=== PATIENT | male | born 1955 | race African-American/Black ===

== ENCOUNTER 2024-10-24 07:43 | Emergency (ER) | payer OTHER, MEDICAID ==
[~2024-10-24] VITALS: Ht 177.8 cm; Wt 105.6 kg
[2024-10-24 08:24] VITALS: BP 186/85; PULSE 75; RESP 18; TEMP 98.2; O2SAT 94
--- NOTE | 2024-10-24 08:35 | ED.PDOC ---
General HPI Comments A 68 YEAR OLD MALE PRESENTS TO THE ED WITH CHIEF COMPLAINT OF TESTICULAR PAIN. PATIENT REPORTS THAT HE HAS BEEN EXPERIENCING RIGHT SIDED TESTICULAR PAIN AND SWELLING FOR THE PAST MONTH, HOWEVER, HE HAD SIMILAR SYMPTOMS YEARS AGO AFTER BACK SURGERY IN 2016. PATIENT RELAYS THAT HE HAD NUMBNESS TO HIS LOWER BODY DUE TO HIS BACK SURGERY, HOWEVER, HE HAS NOW STARTED TO EXPERIENCE FEELINGS OF PAIN FOR A MONTH. PATIENT DENIES ANY DYSURIA, HEMATURIA, FEVER, CHILLS, OR ABDOMINAL PAIN. NO OTHER SYMPTOMS REPORTED AT THIS TIME OF CARE. Chief Complaint: Testicle Pain Time Seen by MD: 08:31 Primary Care Provider: UNKNOWN Reviewed notes: Nurses Notes, Medications, Allergies Allergies: Coded Allergies: NO KNOWN ALLERGIES (Unverified , 06/14/16) Home Meds Active Scripts Indomethacin (Indomethacin) 50 Mg Cap, 1 CAP PO TID, #30 CAP Prov:ANSHUL SAAVEDRA 10/24/24 Ciprofloxacin Hcl (Cipro) 500 Mg Tab, 1 TAB PO BID, #20 TAB Prov:ANSHUL SAAVEDRA 10/24/24 Information Source: Patient Mode of Arrival: Ambulatory Severity: Moderate Inability to void: None Timing: Months Duration: Since onset, Intermittent Prehospital treatment: None Onset: Spontaneous Symptoms: None History of: None Location male: R Scrotum Penile discharge: None Modifying factors: None associated signs and symptoms: None Past Medical History Past Medical History (Other): CHRONIC LOW BACK PAIN Surgical History (Other): BACK SURGERY Family History Family History: Unknown Social History Smoker: Non-Smoker Alcohol: Denies ETOH Use Drugs: Denies Drug Use Lives In: Home Constitutional: reports: others (ANXIOUS ); denies: chills, diaphoresis, fatigue, fever, malaise, sweats, weakness EENTM: denies: blurred vision, double vision, ear bleeding, ear discharge, ear drainage, ear pain, ear ringing, eye pain, eye redness, hearing loss, mouth pain, mouth swelling, nasal discharge, nose bleeding, nose congestion, nose pain, photophobia, tearing, throat pain, throat swelling, voice changes, others Respiratory: denies: cough, hemoptysis, orthopnea, SOB at rest, shortness of breath, SOB with excertion, stridor, wheezing, others Cardiovascular: denies: chest pain, dizzy spells, diaphoresis, Dyspnea on exertion, edema, irregular heart beat, left arm pain, lightheadedness, palpitations, PND, syncope, others Gastrointestinal: denies: abdomen distended, abdominal pain, blood streaked bowels, constipated, diarrhea, dysphagia, difficulty swallowing, hematemesis, melena, nausea, poor appetite, poor fluid intake, rectal bleeding, rectal pain, vomiting, others Genitourinary: reports: testicle pain, testicle swelling; denies: burning, dysuria, flank pain, frequency, hematuria, incontinence, penile discharge, penile sore, pain, urgency, others Neurological: denies: dizziness, fainting, headache, left sided numbness, left sided weakness, numbness, paresthesia, pre-existing deficit, right sided numbness, right sided weakness, seizure, speech problems, tingling, tremors, weakness, others Musculoskeletal: denies: back pain, gout, joint pain, joint swelling, muscle pain, muscle stiffness, neck pain, others Integumetry: denies: bruises, change in color, change in hair/nails, dryness, laceration, lesions, lumps, rash, wounds, others Allergic/Immunocompromised: denies: Difficulty Healing, Frequent Infections, Hives, Itching, others Hematologic/Lymphatic: denies: anemia, blood clots, easy bleeding, easy bruising, swollen glands, others Endocrine: denies: excessive hunger, excessive sweating, excessive thirst, excessive urination, flushing, intolerance to cold, intolerance to heat, unexplained weight gain, unexplained weight loss, others Psychiatric: denies: anxiety, bipolar disorder, depression, hopeless, panic disorder, schizophrenia, sleepless, suicidal, others All Other Systems: Reviewed and Negative Physical Exam General Appearance: No Apparent Distress, Normal HEENT: Normal ENT Inspection, PERRL/EOMI, Pharynx Normal Neck: Full Range of Motion, Non-Tender, Normal, Normal Inspection Respiratory: Chest Non-Tender, Lungs Clear, No Accessory Muscle Use, No Respiratory Distress, Normal Breath Sounds Cardiovascular: No Edema, No JVD, No Murmur, No Gallop, Normal Peripheral Pulses, Regular Rate/Rhythm Breast Exam: Deferred Gastrointestinal: No Organomegaly, Non Tender, No Pulsatile Mass, Normal Bowel Sounds, Soft Genitalia: Scrotum (TENDERNESS ON RIGHT SCROTUM WITH MILD SWELLING. ), Testicle (TENDERNESS AND MILD SWELLING ON RIGHT TESTICLE, BILATERAL TESTICLE DESCENDING, NO TESTICLE TORSION. TENDERNESS RIGHT EPIDIDYMAL, EPIDIDYMITIS?? ) Pelvic: Deferred Rectal: Deferred Extremities: No calf tenderness, Normal capillary refill, Normal inspection, Normal range of motion, Non-tender, No pedal edema Musculoskeletal : Apperance: Normal Neurologic: Alert, bucket chucker II-XII nml as Tested, No Motor Deficits, Normal Affect, Normal Mood, No Sensory Deficits Cerebellar Function: Normal Reflexes: Normal Skin: Dry, Normal Color, Warm Peripheral Pulses: 2+ carotid (R), 2+ carotid (L) Lymphatic: No Adenopathy Was a procedure done? Was a procedure done?: No Differential Diagnosis Kidney stone (Female): N/A Kidney stone (Male): N/A Penile/Scrotal: Hydrocele X-Ray, Labs, Meds, VS Vital Signs Date Time Temp Pulse Resp B/P (MAP) Pulse Ox O2 Delivery O2 Flow Rate FiO2 10/24/24 08:24 98.2 75 18 186/85 (118) 94 98.2 10/24/24 08:24 75 18 94 Room Air 10/24/24 07:53 98.2 75 18 186/85 (118) 94 PATIENT: DONNIE VAZQUEZ DACCT: [id number]: [id number] : 1955 LOC: ER ROOM / BED: / AGE / SEX: 68 / M ADM STATUS: [facility] ER SERVICE [id number] ORDERING PHYSICIAN: ANSHUL SAAVEDRA PROCEDURE(s): TESUS - TESTICULAR ULTRASOUND REASON: RIGHT TESTICLE PAIN X ONE MONTH ORDER NUMBER(s): [id number], ACCESSION NUMBER(s): [id number] CLINICAL INFORMATION: 68 years old, Male; right testicular pain. TECHNIQUE: Grayscale sonographic imaging of the testicles and scrotal contents was performed , assisted by color doppler technique. Duplex doppler ultrasound of both testicles was performed. COMPARISON: None FINDINGS: The right testicle measures 4.7 x 3.0 x 4.7 cm, within normal limits. Unremarkable echogenicity of the right testicle. Mildly increased flow in the right testicle. Unremarkable epididymis. No hydrocele or varicocele. The left testicle measures 4.4 x 2.3 x 4.2 cm, within normal limits. Unremarkable echogenicity of the left testicle. Arterial and venous blood flow demonstrated. Left epididymis is not able to be visualized. No hydrocele or varicocele. IMPRESSION: 1. No evidence of testicular torsion. 2. Mildly increased flow in the right testicle is nonspecific, may be due to inflammation, including degree of orchitis in the appropriate clinical setting. Normal flow in the right epididymis. 3. Left epididymis was not able to be visualized. ATED BY: JACE MATTHEWS DO DICTATED DATE/TIME: 10/24/24955 SIGNED BY: JACE MATTHEWS DO SIGNED DATE/TIME: 10/24/24955 CC: X-Ray, Labs, Meds, VS Comment EXTERNAL MEDICAL RECORDS REVIEWED: 06/14/16 FOR CERVICAL RADICULOPATHY INDEPENDENT HISTORIANS: [NONE] SOCIAL DETERMINANTS OF HEALTH: [NONE] LABS ORDERED: NONE REVIEWED AND INTERPRETED RESULTS: TESTICULAR US: PENDING OFFICIAL READING. PER BRAKE MECHANIC, POSSIBLE MILD HYDROCELE AND MILD EPIDIDYMITIS. IMAGING ORDERED: TESTICULAR US TREATMENTS ORDERED: NONE PROCEDURES PERFORMED: NONE CRITICAL CARE TIME: NONE I HAVE DISCUSSED THE PATIENT WITH THE ATTENDING PHYSICIAN DR. VEGA AND HE AGREES WITH THE PATIENT'S PLAN OF CARE AND DISPOSITION. BASED ON HISTORY OF PRESENT ILLNESS, AND PHYSICAL EXAM, PATIENT WILL BE DISCHARGED HOME. DISCUSSED PLAN FOR DISCHARGE HOME WITH RX. MEDICATION WARNINGS GIVEN. SHARED DECISION MAKING: DISCUSSED WITH PATIENT THAT THEIR WORKUP WAS NORMAL. PATIENT INSTRUCTED TO FOLLOW UP WITH PRIMARY CARE PROVIDER IN 1-2 DAYS FOR RE- EVALUATION OF SYMPTOMS. PATIENT VERBALIZES UNDERSTANDING TO RETURN TO ED FOR NEW OR WORSENING SYMPTOMS OR IF FOLLOW UP WITH PCP CANNOT BE OBTAINED. PATIENT FEELS COMFORTABLE GOING HOME AT THIS TIME. ALL QUESTIONS ADDRESSED AT TIME OF DISCHARGE. Time of 1ST Reevaluation: 09:50 Reevaluation 1ST: Unchanged Patient Education/Counseling: Diagnosis, Treatment, Need For Follow Up Family Education/Counseling: Diagnosis, Treatment, No Family Present Medical Screening: No EMC Exist At This Time Departure 1 Departure Time of Disposition: 09:50 Impression: Primary Impression: Orchitis and epididymitis Disposition: 01 HOME / SELF CARE / HOMELESS Condition: Stable Additional Instructions: FOLLOW-UP WITH PCP IN 1 TO 2 DAYS. TAKE MEDICATIONS PRESCRIBED. RETURN TO ED FOR ANY NEW OR WORSENING SYMPTOMS. e-Prescriptions Indomethacin (Indomethacin) 50 Mg Cap 1 CAP PO TID, #30 CAP Prov: ANSHUL SAAVEDRA 10/24/24 Ciprofloxacin Hcl (Cipro) 500 Mg Tab 1 TAB PO BID, #20 TAB Prov: ANSHUL SAAVEDRA 10/24/24 Discharged With: Self Critical Care Note Critical Care Time?: No Stability Stability form required: No Heart Score Heart Score: Heart Score Response (Comments) Value History N/A 0 EKG N/A 0 Age N/A 0 Risk Factors N/A 0 Troponin N/A 0 Total 0 I personally scribed for ANSHUL SAAVEDRA ([email or web address]) on 10/24/24 at 08:35. Electronically submitted by Sid Khalil ([email or web address]). I personally scribed for ANSHUL SAAVEDRA ([email or web address]) on 10/24/24 at 09:47. Electronically submitted by Sid Khalil ([email or web address]). ANSHUL SAAVEDRA Oct 24, 2024 08:35
[2024-10-24] MEDS ORDERED: INDO50CA82 PO (09:49)
[2024-10-24] MEDS ORDERED: CIPR-173 PO (09:49)
--- NOTE | 2024-10-24 09:58 | DVH ---
CLINICAL INFORMATION: 68 years old, Male; right testicular pain. TECHNIQUE: Grayscale sonographic imaging of the testicles and scrotal contents was performed , faizan josesito by color doppler technique. Duplex doppler ultrasound of both testicles was performed. COMPARISON: None FINDINGS: The right testicle measures 4.7 x 3.0 x 4.7 cm, within normal limits. Unremarkable echogenicity of th e right testicle. Mildly increased flow in the right testicle. Unremarkable epididymis. No hydrocel e or varicocele. The left testicle measures 4.4 x 2.3 x 4.2 cm, within normal limits. Unremarkable echogenicity of the left testicle. Arterial and venous blood flow demonstrated. Left epididymis is not able to be visu alized. No hydrocele or varicocele. IMPRESSION: 1. No evidence of testicular torsion. 2. Mildly increased flow in the right testicle is nonspecific, may be due to inflammation, including degree of orchitis in the appropriate clinical setting. Normal flow in the right epididymis. 3. Left epididymis was not able to be visualized.
== END 2024-10-24 09:55 | disposition home or self-care (01) ==
LOC: ER 07:43
DX: N45.3 Epididymo-orchitis (principal); G89.29 Other chronic pain; M54.50 Low back pain, unspecified; Z79.2 Long term (current) use of antibiotics; Z79.899 Other long term (current) drug therapy
CPT/HCPCS: 76870

== ENCOUNTER 2024-11-21 08:54 | Emergency (ER) | payer OTHER, MEDICAID ==
[~2024-11-21] VITALS: Ht 177.8 cm; Wt 103.6 kg
[~2024-11-21 08:54] MED LIST: CIPR-173 PO; INDO50CA82 PO
[2024-11-21 09:15] VITALS: BP 188/94; PULSE 71; RESP 18; TEMP 98.6; O2SAT 97
--- NOTE | 2024-11-21 09:32 | ED.PDOC ---
General HPI Comments A 69 YEAR OLD MALE PRESENTS TO THE ED WITH CHIEF COMPLAINT OF RIGHT TESTICULAR PAIN. PATIENT REPORTS THAT HE HAS BEEN EXPERIENCING RIGHT TESTICULAR PAIN AND SWELLING FOR THE PAST YEAR, WORSE TODAY WITH AN 8/10 PAIN. PATIENT RELAYS THAT HE NEEDS TO STRAIGHT CATH HIMSELF FOR THE PAST 8 YEARS DUE TO AN INABILITY TO VOID AFTER A BACK SURGERY. PATIENT STATES HE HAS FREQUENT UTIS. PATIENT NOTES HE WAS SEEN ON 10/24 IN [facility] WHERE AN ULTRASOUND REPORTED EPIDIDYMITIS AND EVEN AFTER TAKING THE PRESCRIBED ANTIBIOTICS, NO RELIEF HAS BEEN NOTED SINCE THEN. PATIENT DENIES ANY DYSURIA, HEMATURIA, ABDOMINAL PAIN, FEVER, OR CHILLS. NO OTHER SYMPTOMS REPORTED AT THIS TIME OF CARE. Chief Complaint: Testicle Pain Time Seen by MD: 09:29 Primary Care Provider: UNKNOWN Reviewed notes: Nurses Notes, Medications, Allergies Allergies: Coded Allergies: NO KNOWN ALLERGIES (Unverified , 06/14/16) Home Meds Active Scripts Naproxen (Naproxen) 500 Mg Tab, 500 MG PO BID, #30 TAB Prov:ANSHUL SAAVEDRA 11/21/24 Indomethacin (Indomethacin) 50 Mg Cap, 1 CAP PO TID, #30 CAP Prov:ANSHUL SAAVEDRA 10/24/24 Ciprofloxacin Hcl (Cipro) 500 Mg Tab, 1 TAB PO BID, #20 TAB Prov:ANSHUL SAAVEDRA 10/24/24 Information Source: Patient Mode of Arrival: Ambulatory Severity: Moderate Inability to void: Complete Timing: Months Duration: Since onset Prehospital treatment: None Onset: Spontaneous Symptoms: None History of: UTI, Chronic indwelling luna, Epididymitits Location male: R Scrotum Penile discharge: None Modifying factors: None associated signs and symptoms: None Past Medical History PAST MEDICAL HISTORY: UTI'S Past Medical History (Other): CHRONIC LOW BACK PAIN Surgical History (Other): BACK SURGERY, TESTICLE SURGERY Family History Family History: Reviewed,noncontributory to illness, Unknown Social History Smoker: Non-Smoker Alcohol: Denies ETOH Use Drugs: Denies Drug Use Lives In: Home Constitutional: denies: chills, diaphoresis, fatigue, fever, malaise, sweats, weakness, others EENTM: denies: blurred vision, double vision, ear bleeding, ear discharge, ear drainage, ear pain, ear ringing, eye pain, eye redness, hearing loss, mouth pain, mouth swelling, nasal discharge, nose bleeding, nose congestion, nose pain, photophobia, tearing, throat pain, throat swelling, voice changes, others Respiratory: denies: cough, hemoptysis, orthopnea, SOB at rest, shortness of breath, SOB with excertion, stridor, wheezing, others Cardiovascular: denies: chest pain, dizzy spells, diaphoresis, Dyspnea on exertion, edema, irregular heart beat, left arm pain, lightheadedness, palpitations, PND, syncope, others Gastrointestinal: denies: abdomen distended, abdominal pain, blood streaked bowels, constipated, diarrhea, dysphagia, difficulty swallowing, hematemesis, melena, nausea, poor appetite, poor fluid intake, rectal bleeding, rectal pain, vomiting, others Genitourinary: reports: testicle pain, testicle swelling; denies: burning, dysuria, flank pain, frequency, hematuria, incontinence, penile discharge, penile sore, pain, urgency, others Neurological: denies: dizziness, fainting, headache, left sided numbness, left sided weakness, numbness, paresthesia, pre-existing deficit, right sided numbness, right sided weakness, seizure, speech problems, tingling, tremors, weakness, others Musculoskeletal: denies: back pain, gout, joint pain, joint swelling, muscle pain, muscle stiffness, neck pain, others Integumetry: denies: bruises, change in color, change in hair/nails, dryness, laceration, lesions, lumps, rash, wounds, others Allergic/Immunocompromised: denies: Difficulty Healing, Frequent Infections, Hives, Itching, others Hematologic/Lymphatic: denies: anemia, blood clots, easy bleeding, easy bruising, swollen glands, others Endocrine: denies: excessive hunger, excessive sweating, excessive thirst, excessive urination, flushing, intolerance to cold, intolerance to heat, unexplained weight gain, unexplained weight loss, others Psychiatric: denies: anxiety, bipolar disorder, depression, hopeless, panic disorder, schizophrenia, sleepless, suicidal, others All Other Systems: Reviewed and Negative Physical Exam General Appearance: No Apparent Distress, Normal HEENT: Normal ENT Inspection, PERRL/EOMI Neck: Full Range of Motion, Non-Tender, Normal, Normal Inspection Respiratory: Chest Non-Tender, Lungs Clear, No Accessory Muscle Use, No Respiratory Distress, Normal Breath Sounds Cardiovascular: No Edema, No JVD, No Murmur, No Gallop, Normal Peripheral Pulses, Regular Rate/Rhythm Breast Exam: Deferred Gastrointestinal: No Organomegaly, Non Tender, No Pulsatile Mass, Normal Bowel Sounds, Soft Genitalia: Scrotum (TENDERNESS AND MILD SWELLING ON RIGHT SCROTUM. ), Testicle (TENDERNESS AND MILD SWELLING ON RIGHT TESTICLE, NO TESTICLE TORSION, BILATERAL TESTICLE DESCENDING. ) Pelvic: Deferred Rectal: Deferred Extremities: No calf tenderness, Normal capillary refill, Normal inspection, Normal range of motion, Non-tender, No pedal edema Musculoskeletal : Apperance: Normal Neurologic: Alert, veterinary receptionist II-XII nml as Tested, No Motor Deficits, Normal Affect, Normal Mood, No Sensory Deficits Cerebellar Function: Normal Reflexes: Normal Skin: Dry, Normal Color, Warm Peripheral Pulses: 2+ carotid (R), 2+ carotid (L), 2+ dorsalis pedis (R), 2+ dorsalis pedis (L) Lymphatic: No Adenopathy Was a procedure done? Was a procedure done?: No Differential Diagnosis Kidney stone (Female): N/A Kidney stone (Male): N/A Penile/Scrotal: Epidiymitis, Hydrocele, Testicular Torsion X-Ray, Labs, Meds, VS Vital Signs Date Time Temp Pulse Resp B/P (MAP) Pulse Ox O2 Delivery O2 Flow Rate FiO2 11/21/24 09:15 71 18 97 Room Air 11/21/24 09:15 98.6 71 18 188/94 (125) 97 98.6 11/21/24 09:07 98.6 71 18 188/94 (125) 97 Lab Test 11/21/24 09:28 Range/Units Urine Color Light-yellow Yellow Urine Clarity Clear Clear Urine pH 6.0 5.0-9.0 Urine Specific [place] 1.018 1.001-1.035 Urine Protein Negative Negative Urine Ketones Negative Negative Urine Blood Negative Negative /uL Urine Nitrite Negative Negative Urine Bilirubin Negative Negative Urine Urobilinogen Normal Negative mg/dL Urine Leukocyte Esterase Negative Negative /uL Urine RBC 1 0 - 3 /hpf Urine Microscopic WBC < 1 0-3 /HPF Urine Squamous Epithelial Cells None seen <5 /hpf Urine Bacteria None seen None Seen /hpf Urine Glucose Normal Normal mg/dL TESTICULAR US: FINDINGS: The right testicle measures 5.2 x 2.8 x 4.4 cm, within normal limits. Normal e chotexture of the right testicle. Arterial and venous blood flow demonstrated. Unremarkable epididymis. No hydrocele. There is a varicocele. The left testicle measures 4.5 x 3.1 x 4.5 cm, within normal limits. Normal echotexture of the left testicle. Arterial and venous blood flow demonstrated. Unremarkable epididymis. No hydrocele or varicocele. IMPRESSION: 1. No evidence of testicular torsion. No persistent increased flow to the right testicle. Right varicocele. X-Ray, Labs, Meds, VS Comment EXTERNAL MEDICAL RECORDS REVIEWED: FOR TESTICULAR PAIN AND SWELLING INDEPENDENT HISTORIANS: [NONE] SOCIAL DETERMINANTS OF HEALTH: [NONE] LABS ORDERED: NONE REVIEWED AND INTERPRETED RESULTS: TESTICULAR US IMAGING ORDERED: TESTICULAR US TREATMENTS ORDERED: NONE PROCEDURES PERFORMED: NONE CRITICAL CARE TIME: NONE I HAVE DISCUSSED THE PATIENT WITH THE ATTENDING PHYSICIAN DR. VEGA AND HE AGREES WITH THE PATIENT'S PLAN OF CARE AND DISPOSITION. BASED ON HISTORY OF PRESENT ILLNESS, AND PHYSICAL EXAM, PATIENT WILL BE DISCHARGED HOME. DISCUSSED PLAN FOR DISCHARGE HOME WITH RX. MEDICATION WARNINGS GIVEN. SHARED DECISION MAKING: DISCUSSED WITH PATIENT THAT THEIR WORKUP WAS NORMAL. PATIENT INSTRUCTED TO FOLLOW UP WITH PRIMARY CARE PROVIDER IN 1-2 DAYS FOR RE- EVALUATION OF SYMPTOMS. PATIENT VERBALIZES UNDERSTANDING TO RETURN TO ED FOR NEW OR WORSENING SYMPTOMS OR IF FOLLOW UP WITH PCP CANNOT BE OBTAINED. PATIENT FEELS COMFORTABLE GOING HOME AT THIS TIME. ALL QUESTIONS ADDRESSED AT TIME OF DISCHARGE. Time of 1ST Reevaluation: 11:01 Reevaluation 1ST: Improved Patient Education/Counseling: Diagnosis, Treatment, Need For Follow Up Family Education/Counseling: Diagnosis, Treatment, No Family Present Medical Screening: No EMC Exist At This Time Departure 1 Departure Time of Disposition: 11:01 Impression: Primary Impression: Right varicocele Disposition: 01 HOME / SELF CARE / HOMELESS Condition: Stable Additional Instructions: FOLLOW-UP WITH PCP IN 1 TO 2 DAYS. TAKE MEDICATIONS PRESCRIBED. RETURN TO ED FOR ANY NEW OR WORSENING SYMPTOMS. e-Prescriptions Naproxen (Naproxen) 500 Mg Tab 500 MG PO BID, #30 TAB Prov: ANSHUL SAAVEDRA 11/21/24 Discharged With: Self Critical Care Note Critical Care Time?: No Stability Stability form required: No Heart Score Heart Score: Heart Score Response (Comments) Value History N/A 0 EKG N/A 0 Age N/A 0 Risk Factors N/A 0 Troponin N/A 0 Total 0 I personally scribed for ANSHUL SAAVEDRA ([email or web address]) on 11/21/24 at 09:32. Electronically submitted by Sid Khalil ([email or web address]). I personally scribed for ANSHUL SAAVEDRA ([email or web address]) on 11/21/24 at 10:19. Electronically submitted by Sid Khalil ([email or web address]). I personally scribed for ANSHUL SAAVEDRA ([email or web address]) on 11/21/24 at 10:55. Electronically submitted by Sid Khalil ([email or web address]). ANSHUL SAAVEDRA Nov 21, 2024 09:32
[2024-11-21 10:02] LABS: Urine Bacteria None Seen /hpf (None Seen)
[2024-11-21 10:28] LABS: Urine Blood Negative /uL (Negative); Urine Clarity Clear (Clear); Urine Color Light-Yellow (Yellow); Urine Protein, UAD Negative (Negative); Urine Specific Gravity 1.018 (1.001-1.035); Urine Squamous Epithelial Cell None Seen /hpf (<5); Urine Urobilinogen Normal (Negative)
[2024-11-21 10:30] LABS: Urine WBC < 1 /HPF (0-3)
--- NOTE | 2024-11-21 10:53 | DVH ---
CLINICAL INFORMATION: 69 years old, Male; RIGHT TESTICLE PAIN AND SWELLING. TECHNIQUE: Grayscale sonographic imaging of the testicles and scrotal contents was performed , faizan josesito by color doppler technique. Duplex doppler ultrasound of both testicles was performed. COMPARISON: US TESTICULAR ULTRASOUND on DOS: 10/24/24 FINDINGS: The right testicle measures 5.2 x 2.8 x 4.4 cm, within normal limits. Normal echotexture of the right testicle. Arterial and venous blood flow demonstrated. Unremarkable epididymis. No hydrocele. The re is a varicocele. The left testicle measures 4.5 x 3.1 x 4.5 cm, within normal limits. Normal echotexture of the left t esticle. Arterial and venous blood flow demonstrated. Unremarkable epididymis. No hydrocele or vari cocele. IMPRESSION: 1. No evidence of testicular torsion. No persistent increased flow to the right testicle. Right varic ocele.
[2024-11-21] MEDS ORDERED: NAPR-746 PO (11:00)
== END 2024-11-21 11:15 | disposition home or self-care (01) ==
LOC: ER 08:54
DX: I86.1 Scrotal varices (principal); G89.29 Other chronic pain; M54.50 Low back pain, unspecified; Z79.899 Other long term (current) drug therapy
CPT/HCPCS: 76870; 81001